=== PATIENT | male | born 1965 | race Caucasian/White ===

== ENCOUNTER 2018-01-13 23:27 | Inpatient (IN) | payer BC, OTHER ==
[~2018-01-13] VITALS: Ht 175.3 cm; Wt 113.5 kg
[2018-01-14 03:00] VITALS: BP 138/77; PULSE 64; RESP 18; TEMP 96; O2SAT 97
[2018-01-14] MEDS ORDERED: diphenhydrAMINE HCL 50 MG CAP - HS PRN PO (04:45)
[2018-01-14] MEDS ORDERED: BENZTROPINE MESYLATE 1 MG TAB PO PRN (04:45)
[2018-01-14] MEDS ORDERED: BENZTROPINE MESYLATE 2 MG/2 ML VIAL IM PRN (04:45)
[2018-01-14] MEDS ORDERED: ACETAMINOPHEN 325 MG TAB PO PRN (04:45)
[2018-01-14] MEDS ORDERED: diphenhydrAMINE HCL 50 MG/ML VIAL - HS PRN IM (04:45)
[2018-01-14] MEDS ORDERED: ALUMINUM/MAGNESIUM/SIMETH 30 ML CUP PO PRN (04:45)
[2018-01-14] MEDS ORDERED: MAGNESIUM HYDROXIDE SUSP 30 ML CUP PO PRN (04:45)
[2018-01-14] MEDS: ATENOLOL 25 MG TAB PO SCH (09:00)
[2018-01-14 12:24] LABS: BICARBONATE 29.3 MEQ/L (21.0-32.0); BLOOD UREA NITROGEN 11 MG/DL (7-18); CHLORIDE 105 MEQ/L (98-107); CHOLESTEROL 143 MG/DL (120-200); CREATININE 0.92 MG/DL (0.60-1.30); GLOMERULAR FILTRATION RATE 86 ML/MIN (>89); GLUCOSE,RANDOM 103 MG/DL (74-106); SODIUM (NA) 140 MEQ/L (136-145)
[2018-01-14 12:26] LABS: CHOLESTEROL/ HDL RATIO 4.52 RATIO; HDL CHOLESTEROL 31.6 MG/DL (40.0-60.0); LDL CHOLESTEROL 92 MG/DL (0-99); TRIGLYCERIDES 99 MG/DL (42-150)
[2018-01-14] MEDS ORDERED: diphenhydrAMINE HCL 50 MG CAP PO PRN (13:45)
[2018-01-14] MEDS ORDERED: hydrOXYzine HCL 50 MG TAB PO PRN (13:45)
[2018-01-14] MEDS ORDERED: PILL SPLITTER OTHER PRN (14:15)
[2018-01-14] MEDS: BENZTROPINE MESYLATE 1 MG TAB PO SCH ×2 (14:16→20:10)
[2018-01-14] MEDS: OLANZapine 5 MG TAB PO SCH ×2 (14:16→20:10)
[2018-01-14] MEDS: ESCITALOPRAM OXALATE 20 MG TAB PO SCH (14:17)
[2018-01-14 16:16] LABS: HEMOGLOBIN A1C 5.8 % (4.3-6.0)
--- NOTE | 2018-01-14 17:17 | HHI.HP ---
Provisional Diagnosis Admission Date Jan 14, 2018 at 03:00 [place] I. Schizophrenia Certification of Person's Competence To Provide Express and Informed Consent I have personally examined Shilo Alexandra , a person being served at [facility] on, Jan 14, 2018 17:02. Express and informed consent means consent voluntarily given in writing, by a competent person, after sufficient explanation and disclosure of the subject matter involved to enable the person to make a knowing and willful decision without any element of force, fraud, deceit, duress, or other form of constraint or coercion. This person is 18 years of age or older, is not now known to be incompetent to consent to treatment with a guardian advocate, and does not have a health care surrogate or proxy currently making medical treatment decisions. I have found this person to be one of the following: [] Competent to provide express and informed consent, as defined above, for voluntary admission to this facility and is competent to provide express and informed consent for treatment. He/she has the consistent capacity to make well reasoned, willful, and knowing decisions concerning his or her medical or mental health treatment. The person fully and consistently understands the purpose of the admission for examination/placement and is fully capable of personally exercising all rights assured under [place]xxx] Incompetent to provide express and informed consent to voluntary admission , and this is incompetent to provide express and informed consent to treatment. The person must be transferred to involuntary status and a petition for a guardian advocate filed with the Circuit Court. [] Refusing to provide express and informed consent to voluntary admission but is competent to provide express and informed consent for treatment. The person must be discharged or transferred to involuntary status. Form shall be completed within 24 hours of a person's arrival at the receiving facility and filed in the clinical record of each person: 1. Admitted on a voluntary basis 2. Permitted to provide express and informed consent to his/her own treatment 3. Allowed to transfer from involuntary to voluntary status 4. Prior to permitting a person to consent to his or her own treatment after having been previously found incompetent to consent to treatment. History of Present Illness Capacity: Has Capacity (For medications only) HPI Patient is a 52-year-old man, single, recently came from [place] 2 months ago, domiciled with sister and her family, with a past psychiatric history of schizophrenia, depression, 2 [place] psychiatric [place] no previous suicide attempt or self injury behavior, with a past medical history significant for hypertension and hiatal hernia, who was transferred from a local hospital due to auditory hallucinations command type to hurt himself and others which patient was admitted to the inpatient psychiatry for further evaluation and management. As per Adames act: Patient hearing voices, God is trying to kill him, family feels meds are not helping, danger to self. Patient was found sitting in hospital bed , cooperative. Patient noted to be somewhat disorganized stating that he had a relapse of his "nerves" and did not want to return home as he had a problem with his sister's . He states that he was being pressured to move out. He is also endorsing having auditory hallucinations telling him that people are coming to kill him. Patient reports having recently be admitted to a psychiatric hospital 1 month ago in [place] and was provided with medications which he states have not been helpful. Patient this time reports feeling anxious, and "nervous", denying any SI or HI, endorsing auditory hallucinations but denying any visual hallucinations. Collateral information from patient's sister, Dianne Alexandra, stated that the patient had a panic attack at home was reporting hearing voices, not sleeping for the past couple of days and wanted to run out of the house. Patient also had told her that God was looking to kill him and that he was having auditory hallucinations telling him to stab other people. She also noticed the patient had been very paranoid recently. She mentions that he has been diagnosed with schizophrenia and has had previous psychiatric admissions. Past psychiatric history: Previous psychiatric diagnoses of schizophrenia, depression, 2 previous psychiatric admissions, last time being [place] 1 month ago, no previous suicide attempt or self interest behavior patient denies any history of abuse. Substance use history: Denies, past medical history: Hypertension, hiatal hernia Allergies: NKDA Social history: Came from [place] 2 months ago has been living with his sister and her family. Single, unemployed. Review of Systems Except as stated in HPI: all other systems reviewed are Neg Past Psych History Psychological trauma history Denies Violence risk - others (6 mos) Elevated due to command auditory hallucinations to stab others Violence risk - self (6 mos) Elevated due to command auditory hallucinations to hurt himself Substance Abuse History Drugs/Alcohol past 12 months Denies Past Family Social History Coded Allergies: aripiprazole (Verified Adverse Reaction, Severe, Panic/nightmares, 01/14/18 ) Verified with patient Current Medications Medications (Trade) Dose Ordered Sig/Mac Route Start Time Stop Time Status Last Admin (Cogentin) 1 mg Q12H PRN PO 01/14/18 04:45 (Cogentin Inj) 1 mg Q12H PRN IM 01/14/18 04:45 (Tylenol) 650 mg Q4H PRN PO 01/14/18 04:45 (Milk Of Magnesia Liq) 30 ml DAILY PRN PO 01/14/18 04:45 (Mag-Al Plus Susp Liq) 30 ml Q6H PRN PO 01/14/18 04:45 (Tenormin) 50 mg DAILY PO 01/14/18 09:00 01/14/18 09:00 (Pneumovax-23 Inj) 25 mcg ONCE ONCE IM 01/15/18 10:00 01/15/18 10:01 (Flu (Quadrivalent) Vaccine Inj) 0.5 ml ONCE ONCE IM 01/15/18 10:00 01/15/18 10:01 (ZyPREXA) 5 mg Q12HR PO 01/14/18 13:45 01/14/18 14:16 (Cogentin) 0.5 mg Q12HR PO 01/14/18 13:45 01/14/18 14:16 (Lexapro) 20 mg DAILY PO 01/14/18 13:45 01/14/18 14:17 (Benadryl) 50 mg HS PRN PO 01/14/18 13:45 (Atarax) 50 mg Q6H PRN PO 01/14/18 13:45 (Pill Splitter) 1 ea UNSCH PRN OTHER 01/14/18 14:15 Social History Came from [place] 2 months ago has been living with his sister and her family. Single, unemployed. Patient's Strengths (min. 2) Verbal and communicative Physical Exam Patient not noted to be acute distress, no tremor or EPS, no signs of psychomotor agitation or retardation. Vital Signs Vital Signs Date Time Temp Pulse Resp B/P (MAP) Pulse Ox O2 Delivery O2 Flow Rate FiO2 01/14/18 03:00 96.0 64 18 138/77 (97) 97 Lab Results Labs reviewed Test 01/14/18 11:37 Blood Urea Nitrogen 11 MG/DL Creatinine 0.92 MG/DL Random Glucose 103 MG/DL Calcium Level 9.0 MG/DL Sodium Level 140 MEQ/L Potassium Level 3.9 MEQ/L Chloride Level 105 MEQ/L Carbon Dioxide Level 29.3 MEQ/L Anion Gap 6 MEQ/L Estimat Glomerular Filtration Rate 86 ML/MIN Triglycerides Level 99 MG/DL Cholesterol Level 143 MG/DL LDL Cholesterol 92 MG/DL HDL Cholesterol 31.6 MG/DL Cholesterol/HDL Ratio 4.52 RATIO Mental Status Examination Appearance: Appropriate Consciousness: Alert Orientation: Person, Place, Date/Time Motor Activity: Normal gait Speech: Unremarkable Language: Adequate Fund of Knowledge: Inadequate Attention and Concentration: Adequate Memory: Unremarkable Mood: Anxious Affect: Anxious Thought Process & Associations: Other ([place]) Thought Content: Delusional Hallucination Type: Auditory (Command type) Delusion Type: Paranoid Suicidal Ideation: No Suicidal Plan: No Suicidal Intention: No Homicidal Ideation: No Homicidal Plan: No Homicidal Intention: No Insight: Poor Judgment: Poor Assessment & Plan Problem List: (1) Schizophrenia ICD Codes: F20.9 - Schizophrenia, unspecified Assessment & Plan Estimated LOS: 5-7 days. Patient is a 52-year-old man who carries a diagnosis schizophrenia, previous psychiatric admissions, admitted under Adames act due to recent auditory hallucinations telling him to hurt himself and others which patient was admitted to the inpatient psychiatry for stabilization. We will start patient on olanzapine 5 mg p.o. twice daily for psychosis, benztropine 0.5 mg p.o. twice daily for EPS, continue patient on citalopram 20 mg p.o. daily for depression. Social work intervention for psychosocial assessment. Continue monitor mood and behavior. Continue to encourage patient to participate in personal hygiene and groups and activities on the unit. Discharge planning in progress. Discharge Planning Patient return back to his residence when psychiatrically stable. Timbo Tate MD Jan 14, 2018 17:17
[2018-01-14 18:37] VITALS: BP 139/80; PULSE 69; RESP 17; TEMP 96.6; O2SAT 96
[2018-01-15 06:21] VITALS: BP 139/74; PULSE 67; RESP 18; TEMP 97.1; O2SAT 98
--- NOTE | 2018-01-15 08:38 | PD.PSY.CON ---
Provisional Diagnosis Admission Date Jan 14, 2018 at 03:00 [place] I. Schizophrenia History of Present Illness Service Psychiatry Consult Requested By Dr. Tate Reason for Consult Second opinion Primary Care Physician No Primary Care Physician HPI Patient is a 52-year-old man, single, recently came from [place] 2 months ago, domiciled with sister and her family, with a past psychiatric history of schizophrenia, depression, 2 previous psychiatric admissions [place]), no previous suicide attempt or self injury behavior, with a past medical history significant for hypertension and hiatal hernia, who was transferred from a local hospital due to auditory hallucinations command type to hurt himself and others which patient was admitted to the inpatient psychiatry for further evaluation and management. As per Adames act: Patient hearing voices, God is trying to kill him, family feels meds are not helping, danger to self. Patient was found sitting in hospital bed , cooperative. Patient noted to be somewhat disorganized stating that he had a relapse of his "nerves" and did not want to return home as he had a problem with his sister's . He states that he was being pressured to move out. He is also endorsing having auditory hallucinations telling him that people are coming to kill him. Patient reports having recently be admitted to a psychiatric hospital 1 month ago in [place] and was provided with medications which he states have not been helpful. Patient this time reports feeling anxious, and "nervous", denying any SI or HI, endorsing auditory hallucinations but denying any visual hallucinations. Collateral information from patient's sister, Dianne Alexandra, stated that the patient had a panic attack at home was reporting hearing voices, not sleeping for the past couple of days and wanted to run out of the house. Patient also had told her that God was looking to kill him and that he was having auditory hallucinations telling him to stab other people. She also noticed the patient had been very paranoid recently. She mentions that he has been diagnosed with schizophrenia and has had previous psychiatric admissions. The patient is a 52 years old [place] man, domiciled in [place] with his mother, unemployed, in SSI process, with psychiatric history of schizophrenia, about 2 previous psychiatric hospitalizations, no previous suicide attempts, medical history of hypertension, consulted to me for second opinion. On psychiatric evaluation today the patient is calm, cooperative, he explains that he is here because he has not been taking medications, and he has been decompensated of his schizophrenia patient reports that he has been hearing voices on and off. Voices are not commanding in type, he does not remember the content. Patient also reports feeling very guilty because he is being about person and "god is watching". He seems to be paranoid and internally preoccupied, but no thought process disorder are present at this moment he denies suicidal or homicidal ideation,. Past Family Social History Coded Allergies: aripiprazole (Verified Adverse Reaction, Severe, Panic/nightmares, 01/14/18 ) Verified with patient Current Medications Medications (Trade) Dose Ordered Sig/Mac Route Start Time Stop Time Status Last Admin (Cogentin) 1 mg Q12H PRN PO 01/14/18 04:45 (Cogentin Inj) 1 mg Q12H PRN IM 01/14/18 04:45 (Tylenol) 650 mg Q4H PRN PO 01/14/18 04:45 (Milk Of Magnesia Liq) 30 ml DAILY PRN PO 01/14/18 04:45 (Mag-Al Plus Susp Liq) 30 ml Q6H PRN PO 01/14/18 04:45 (Tenormin) 50 mg DAILY PO 01/14/18 09:00 01/14/18 09:00 (Pneumovax-23 Inj) 25 mcg ONCE ONCE IM 01/15/18 10:00 01/15/18 10:01 (Flu (Quadrivalent) Vaccine Inj) 0.5 ml ONCE ONCE IM 01/15/18 10:00 01/15/18 10:01 (ZyPREXA) 5 mg Q12HR PO 01/14/18 13:45 01/14/18 20:10 (Cogentin) 0.5 mg Q12HR PO 01/14/18 13:45 01/14/18 20:10 (Lexapro) 20 mg DAILY PO 01/14/18 13:45 01/14/18 14:17 (Benadryl) 50 mg HS PRN PO 01/14/18 13:45 (Atarax) 50 mg Q6H PRN PO 01/14/18 13:45 (Pill Splitter) 1 ea UNSCH PRN OTHER 01/14/18 14:15 Patient's Strengths (min. 2) Verbal and communicative Physical Exam Vital Signs Vital Signs Date Time Temp Pulse Resp B/P (MAP) Pulse Ox O2 Delivery O2 Flow Rate FiO2 01/15/18 06:21 97.1 67 18 139/74 (95) 98 Lab Results Test 01/14/18 11:37 Blood Urea Nitrogen 11 MG/DL Creatinine 0.92 MG/DL Random Glucose 103 MG/DL Calcium Level 9.0 MG/DL Sodium Level 140 MEQ/L Potassium Level 3.9 MEQ/L Chloride Level 105 MEQ/L Carbon Dioxide Level 29.3 MEQ/L Anion Gap 6 MEQ/L Estimat Glomerular Filtration Rate 86 ML/MIN Hemoglobin A1c 5.8 % Triglycerides Level 99 MG/DL Cholesterol Level 143 MG/DL LDL Cholesterol 92 MG/DL HDL Cholesterol 31.6 MG/DL Cholesterol/HDL Ratio 4.52 RATIO Mental Status Examination Appearance: Appropriate Consciousness: Alert Orientation: Person, Place, Date/Time Motor Activity: Normal gait Speech: Unremarkable Language: Adequate Fund of Knowledge: Inadequate Attention and Concentration: Adequate Memory: Unremarkable Mood: Anxious Affect: Anxious Thought Process & Associations: Other ([place]) Thought Content: Delusional Hallucination Type: Auditory (Command type) Delusion Type: Paranoid Suicidal Ideation: No Suicidal Plan: No Suicidal Intention: No Homicidal Ideation: No Homicidal Plan: No Homicidal Intention: No Insight: Poor Judgment: Poor Assessment & Plan Problem List: (1) Schizophrenia ICD Codes: F20.9 - Schizophrenia, unspecified Assessment & Plan: I have examined and seen this patient, review documentation , discussed with Dr. Tate, and agree and concur with his assessment and plan. Assessment & Plan Estimated LOS: Vladimir Jenkins MD Jan 15, 2018 08:38
[2018-01-15] MEDS: ATENOLOL 25 MG TAB PO SCH (09:14)
[2018-01-15] MEDS: ESCITALOPRAM OXALATE 20 MG TAB PO SCH (09:14)
[2018-01-15] MEDS: BENZTROPINE MESYLATE 1 MG TAB PO SCH ×2 (09:14→20:51)
[2018-01-15] MEDS: OLANZapine 5 MG TAB PO SCH (09:14)
[2018-01-15] MEDS: INFLUENZA VIRUS VACCINE (QUADRIVALENT) 0.5 ML SYR IM ONE ×2 (10:00→12:42)
[2018-01-15] MEDS ORDERED: PNEUMOCOCCAL POLYVALENT INJ 25 MCG/0.5 ML SYR IM ONE (10:00)
--- NOTE | 2018-01-15 16:25 | HHI.PYPN ---
Subjective Remarks Patient is here for follow, chart reviewed. Discussion nursing staff reported the patient noted to be somewhat perseverative on certain topics with nursing staff denying auditory hallucinations. Patient was found sitting in the room notably, cooperative. Patient states that he having difficulty with sleep but did not ask for as needed medications. Patient states that he has been feeling "good" continues to endorse having auditory hallucinations "not as much, little " which tell him bahai statements and that the voice tells him that he is the baby of "this lady" which he reports happens mostly at night. Patient denies any adverse drug reaction for current treatment. Patient continues to endorse auditory hallucinations but denies any SI, HI, AVH or delusions. Review of Systems Except as stated in HPI: all other systems reviewed are Neg Mental Status Examination Appearance: Appropriate Consciousness: Alert Orientation: Person, Place, Date/Time Motor Activity: Normal gait Speech: Unremarkable Language: Adequate Fund of Knowledge: Inadequate Attention and Concentration: Adequate Memory: Unremarkable Mood: Anxious Affect: Anxious Thought Process & Associations: Other ([place]) Thought Content: Delusional Hallucination Type: Auditory (Command type) Delusion Type: Paranoid, Other Suicidal Ideation: No Suicidal Plan: No Suicidal Intention: No Homicidal Ideation: No Homicidal Plan: No Homicidal Intention: No Insight: Poor Judgment: Poor Results Vitals/IOs Vital Signs Date Time Temp Pulse Resp B/P (MAP) Pulse Ox O2 Delivery O2 Flow Rate FiO2 01/15/18 06:21 97.1 67 18 139/74 (95) 98 Assessment & Plan Problem List: (1) Schizophrenia ICD Codes: F20.9 - Schizophrenia, unspecified Assessment & Plan Patient this time continues to endorse paranoid delusions along with auditory hallucinations and noted to be somewhat disorganized. We will continue to titrate olanzapine to 5 mg a.m./10 mg at bedtime, continue rest of medications. Continue to monitor mood and behavior. Discharge planning in progress. Justification for Cont. Inpt. At risk of further decompensation at lower level of care Discharge Planning Patient return back to his residence upon psychiatric stabilization. Timbo Tate MD Jan 15, 2018 16:25
[2018-01-15 16:50] VITALS: BP 123/68; PULSE 63; RESP 18; TEMP 97.4; O2SAT 99
[2018-01-15] MEDS: OLANZapine 10 MG TAB PO SCH (20:51)
[2018-01-16 06:18] VITALS: BP 164/96; PULSE 99; RESP 18; TEMP 99.2; O2SAT 99
[2018-01-16] MEDS: BENZTROPINE MESYLATE 1 MG TAB PO SCH ×2 (08:54→20:57)
[2018-01-16] MEDS: OLANZapine 5 MG TAB PO SCH (08:54)
[2018-01-16] MEDS: ESCITALOPRAM OXALATE 20 MG TAB PO SCH (08:54)
[2018-01-16] MEDS: ATENOLOL 25 MG TAB PO SCH (08:54)
--- NOTE | 2018-01-16 14:31 | HHI.PYPN ---
Subjective Remarks Patient seen for follow, chart reviewed. Discussion staff reported the patient has been pleasant, appearing internally preoccupied at times but not talking to self. Patient was found lying hospital bed noted B, cooperative. Patient states that he was able to stay with medications last night, his mood has been "good" and states not having any auditory hallucinations recently, last time being 2 days ago. Patient reports eating and drinking well with no difficulty with bowel movement. Patient states that he he was able to shower or shave yesterday which he felt good about. He mentions that he spoke with his sister over the phone which went well. Review of Systems Except as stated in HPI: all other systems reviewed are Neg Mental Status Examination Appearance: Appropriate Consciousness: Alert Orientation: Person, Place, Date/Time Motor Activity: Normal gait Speech: Unremarkable Language: Adequate Fund of Knowledge: Inadequate Attention and Concentration: Adequate Memory: Unremarkable Mood: Appropriate Affect: Appropriate Thought Process & Associations: Linear, Other ([place]) Thought Content: Appropriate Hallucination Type: Auditory (Command type) Delusion Type: None Suicidal Ideation: No Suicidal Plan: No Suicidal Intention: No Homicidal Ideation: No Homicidal Plan: No Homicidal Intention: No Insight: Poor Judgment: Poor Results Vitals/IOs Vital Signs Date Time Temp Pulse Resp B/P (MAP) Pulse Ox O2 Delivery O2 Flow Rate FiO2 01/16/18 06:18 99.2 99 18 164/96 (118) 99 Assessment & Plan Problem List: (1) Schizophrenia ICD Codes: F20.9 - Schizophrenia, unspecified Assessment & Plan Patient this time noted with improved affect although still blunted but likely secondary to negative symptoms from schizophrenia. Patient longer endorsing any auditory hallucinations although staff reported patient to be noted to be internally preoccupied. Continue current treatment for now continue to monitor mood and behavior. Collateral from family pending and the patient seen to be back at baseline as per family patient likely for discharge soon. Discharge planning in progress. Justification for Cont. Inpt. At risk of further decompensation at lower level of care. Discharge Planning Patient to return back to sisters residence when psychiatrically stable. Timbo Tate MD Jan 16, 2018 14:31
[2018-01-16 18:14] VITALS: BP 161/89; PULSE 83; RESP 18; TEMP 97.3; O2SAT 97
[2018-01-16] MEDS: OLANZapine 10 MG TAB PO SCH (20:56)
[2018-01-17 06:12] VITALS: BP 124/73; PULSE 91; RESP 16; TEMP 96.5; O2SAT 100
[2018-01-17] MEDS: ATENOLOL 25 MG TAB PO SCH (10:30)
[2018-01-17] MEDS: ESCITALOPRAM OXALATE 20 MG TAB PO SCH (10:30)
[2018-01-17] MEDS: OLANZapine 5 MG TAB PO SCH (10:30)
[2018-01-17] MEDS: BENZTROPINE MESYLATE 1 MG TAB PO SCH (10:30)
[2018-01-17] MEDS ORDERED: Benztropine PO (11:22)
[2018-01-17] MEDS ORDERED: OLAN5TAB PO (11:22)
[2018-01-17] MEDS ORDERED: ESCI20TA PO (11:22)
[2018-01-17] MEDS ORDERED: OLAN10TA PO (11:22)
[2018-01-17] MEDS ORDERED: ATEN50TA PO (11:22)
--- NOTE | 2018-01-17 11:22 | HHI.DS ---
Psychiatry Discharge Summary Inpatient Psychiatric care?: Yes Advance Directive: No Reason Not Provided: none Mental Health AdvanceDirective: No Health Care Proxy: No Admission Admission Date Jan 14, 2018 at 03:00 Admission Diagnosis: (1) Schizophrenia ICD Code: F20.9 - Schizophrenia, unspecified Brief History Patient is a 52-year-old man, single, recently came from [place] 2 months ago, domiciled with sister and her family, with a past psychiatric history of schizophrenia, depression, 2 previous psychiatric [place] no previous suicide attempt or self injury behavior, with a past medical history significant for hypertension and hiatal hernia, who was transferred from a local hospital due to auditory hallucinations command type to hurt himself and others which patient was admitted to the inpatient psychiatry for further evaluation and management. As per [facility] act: Patient hearing voices, God is trying to kill him, family feels meds are not helping, danger to self. Patient was found sitting in hospital bed , cooperative. Patient noted to be somewhat disorganized stating that he had a relapse of his "nerves" and did not want to return home as he had a problem with his sister's . He states that he was being pressured to move out. He is also endorsing having auditory hallucinations telling him that people are coming to kill him. Patient reports having recently be admitted to a psychiatric hospital 1 month ago in [place] and was provided with medications which he states have not been helpful. Patient this time reports feeling anxious, and "nervous", denying any SI or HI, endorsing auditory hallucinations but denying any visual hallucinations. Collateral information from patient's sister, Dianne Alexandra, stated that the patient had a panic attack at home was reporting hearing voices, not sleeping for the past couple of days and wanted to run out of the house. Patient also had told her that God was looking to kill him and that he was having auditory hallucinations telling him to stab other people. She also noticed the patient had been very paranoid recently. She mentions that he has been diagnosed with schizophrenia and has had previous psychiatric admissions. The patient is a 52 years old [place] man, domiciled in [place] with his mother, unemployed, in SSI process, with psychiatric history of schizophrenia, about 2 previous psychiatric hospitalizations, no previous suicide attempts, medical history of hypertension, consulted to me for second opinion. On psychiatric evaluation today the patient is calm, cooperative, he explains that he is here because he has not been taking medications, and he has been decompensated of his schizophrenia patient reports that he has been hearing voices on and off. Voices are not commanding in type, he does not remember the content. Patient also reports feeling very guilty because he is being about person and "god is watching". He seems to be paranoid and internally preoccupied, but no thought process disorder are present at this moment he denies suicidal or homicidal ideation,. Tobacco Use In Past 30 Days: No Tobacco Past 30 Days Alcohol Use: Never Hospital Course Patient is a 52-year-old man, single, recently came from [place] 2 months ago, domiciled with sister and her family, with a past psychiatric history of schizophrenia, depression, 2 previous psychiatric admissions ([place]), no previous suicide attempt or self injury behavior, with a past medical history significant for hypertension and hiatal hernia, who was transferred from a local hospital due to auditory hallucinations command type to hurt himself and others which patient was admitted to the inpatient psychiatry for further evaluation and management. Patient was started on olanzapine and titrated up to 5mg a.m./ 10mg HS and continued on citalopram 20mg daily and benztropine 0.5mg PO BID which patient tolerated well and noted to be calm and cooperative with staff. He was noted to be disorganized initially with auditory hallucinations, anxious mood, but improved with adjustment of treatment regimen. Patient was noted to have been compliant with treatment with encouragement, cooperative with staff. Upon discharge patient stated that he was feeling good, denied any psychotic symptoms, denied any SI, HI or delusions. Patient agreed to continue medication regimen and outpatient follow up for continuity of care. I have counseled the patient regarding warning signs for need to return to the psychiatric emergency room as part of a general safety plan. Patient advised to call 911 or go nearest ED in case of emergency. Patient agrees with plan. Results Blood Pressure 124 / 73 Vital Signs Date Time Temp Pulse Resp B/P (MAP) Pulse Ox O2 Delivery O2 Flow Rate FiO2 01/17/18 06:12 96.5 91 16 124/73 (90) 100 Laboratory Tests Test 01/14/18 11:37 Estimat Glomerular Filtration Rate 86 ML/MIN (>89) HDL Cholesterol 31.6 MG/DL (40.0-60.0) Laboratory Results Test 01/14/18 11:37 Cholesterol Level 143 MG/DL (120-200) HDL Cholesterol 31.6 MG/DL (40.0-60.0) Hemoglobin A1c 5.8 % (4.3-6.0) LDL Cholesterol 92 MG/DL (0-99) Triglycerides Level 99 MG/DL (42-150) Summary of Procedures none Pending results at discharge: No Medications # of Antipsychotic meds at D/C: 1 Approp Antipsych med options 1 - Minimum of three failed multiple trials of monotherapy. 2 - Documented plan to taper to monotherapy due to previous use of multiple meds OR cross-taper in progress at D/C. 3 - Documentation of augmentation of Clozapine. 4 - Justification other than those listed in allowable values 1-3, document here : Discharge Discharge Date: Jan 17, 2018 Discharge Diagnosis: (1) Schizophrenia ICD Code: F20.9 - Schizophrenia, unspecified Pt Condition on Discharge: Stable Discharge Disposition: Discharge Home Discharge Instructions Diet Instructions: As Tolerated, No Restrictions Activities you can perform: Regular-No Restrictions Discharge Time > 30 minutes Mental Status Examination Appearance: Appropriate Consciousness: Alert Orientation: Person, Place, Date/Time Motor Activity: Normal gait Speech: Unremarkable Language: Adequate Fund of Knowledge: Inadequate Attention and Concentration: Adequate Memory: Unremarkable Mood: Appropriate Affect: Appropriate Thought Process & Associations: Goal directed, Linear Thought Content: Appropriate Hallucination Type: None Delusion Type: None Suicidal Ideation: No Suicidal Plan: No Suicidal Intention: No Homicidal Ideation: No Homicidal Plan: No Homicidal Intention: No Insight: Fair Judgment: Impulsive Discharge/Advance Care Plan Health Problems: (1) Schizophrenia Goals to promote your health * To prevent worsening of your condition and complications * To maintain your health at the optimal level Directions to meet your goals Take your medications as prescribed Follow your dietary instruction Follow activity as directed Keep your appointments as scheduled Take your immunizations and boosters as scheduled If your symptoms worsen call your PCP, if no PCP go to Urgent Care Center or Emergency Room For 27/05 questions related to your inpatient stay or results of tests pending at discharge, please contact Dr. Timbo Tate at Smoking is Dangerous to Your Health. Avoid second hand smoking Timbo Tate MD Jan 17, 2018 11:22
== END 2018-01-17 12:40 | disposition home or self-care (01) | DRG 885 ==
LOC: H270 01-14 03:00
PROVIDERS: ADMIT Student in an Organized Health Care Education/Training Program; ATTEND Student in an Organized Health Care Education/Training Program
DX: F20.9 Schizophrenia, unspecified (principal); F32.9 Major depressive disorder, single episode, unspecified; I10 Essential (primary) hypertension; F41.0 Panic disorder [episodic paroxysmal anxiety]; G47.00 Insomnia, unspecified; Z79.899 Other long term (current) drug therapy
CPT/HCPCS: 80048; 80061; 83036; 90686; Q0163; Q2038